=== PATIENT | male | born 1995 | race Caucasian/White ===

== ENCOUNTER 2023-08-08 10:46 | Emergency (ER) | payer OTHER ==
[~2023-08-08] VITALS: Ht 170.2 cm; Wt 108.8 kg
[2023-08-08 10:58] VITALS: BP 147/78; PULSE 91; RESP 16; O2SAT 98
[2023-08-08] MEDS ORDERED: NAP500T PO (14:31)
== END 2023-08-08 14:46 | disposition home or self-care (01) ==
LOC: ER 10:46
DX: R51.9 Headache, unspecified (principal); W22.8XXA Striking against or struck by other objects, initial encounter; Y93.89 Activity, other specified; Y92.89 Other specified places as the place of occurrence of the external cause; Y99.8 Other external cause status
CPT/HCPCS: 70450